=== PATIENT | female | born 1940 | race Caucasian/White ===

== ENCOUNTER → 2024-05-10 | Outpatient (CLI) | payer OTHER, SELFPAY ==
--- NOTE | 2024-05-10 12:54 | XR_ITS ---
Examination: Lumbar spine 3 views Technique one AP lateral coned lateral lower lumbar spine 3 views Exam date and time: May 10, 2024 1328 hours INDICATIONS: Lower back pain one year getting worse FINDINGS: Grade 1 anterolisthesis L4 on L5 L5 on S1 Diffuse lumbar disc narrowing, advanced T12-L1, L1-L2, L2-L3, L4-L5 Moderate narrowing hip joints No cortical bone destruction IMPRESSION: Diffuse significant lumbar degenerative disc disease
== END | disposition home or self-care (01) ==
PROVIDERS: PCP Obstetrics & Gynecology; Referring Provider Obstetrics & Gynecology; Visit Provider Obstetrics & Gynecology
DX: M51.369 Other intervertebral disc degeneration, lumbar region without mention of lumbar back pain or lower extremity pain (principal)
CPT/HCPCS: 72100